=== PATIENT | female | born 1945 | race Caucasian/White ===

== ENCOUNTER → 2016-12-06 | Outpatient (CLI) | payer MEDICARE ==
[~2016-12-06] MED LIST: NO HOME MEDS
== END | disposition home or self-care (01) ==
LOC: CFH 15:39
PROVIDERS: ATTEND Family Medicine
DX: M23.221 Derangement of posterior horn of medial meniscus due to old tear or injury, right knee (principal); M25.461 Effusion, right knee; M71.21 Synovial cyst of popliteal space [Baker], right knee

== ENCOUNTER → 2018-06-22 | Outpatient (CLI) | payer MEDICARE | END | disposition home or self-care (01) | LOC: CFH 07:44 | PROVIDERS: ATTEND Family Medicine | DX: Z12.31 Encounter for screening mammogram for malignant neoplasm of breast (principal) | CPT/HCPCS: 77067 ==

== ENCOUNTER 2018-09-02 13:41 | Inpatient (IN) | payer MEDICARE ==
[~2018-09-02] VITALS: Ht 157.5 cm; Wt 76.9 kg
[2018-09-02] MEDS ORDERED: HYDROmorphone 1 MG/ML, 1ML ONE ×2 (13:50→14:12)
[2018-09-02] MEDS ORDERED: ONDANSETRON 2MG/ML, 2ML ONE ×2 (13:50→14:59)
[2018-09-02] MEDS ORDERED: ONDANSETRON 2MG/ML, 2ML IVPush ONE (14:00)
[2018-09-02] MEDS ORDERED: SODIUM CHLORIDE FLUSH 10ML SYR IVF ONE ×3 (14:00→16:00)
--- NOTE | 2018-09-02 14:02 | NUR ---
MARILIN PAW WARMER IN PLACE. MEDICATED FOR PAIN PER ORDERS
[2018-09-02] MEDS: HYDROmorphone 2 MG/ML, 1ML IVPush PRN ×2 (14:06→14:45)
--- NOTE | 2018-09-02 14:19 | NUR ---
Pt to xray via rj.
--- NOTE | 2018-09-02 14:41 | NUR ---
Pt back from xray, still c/o pain in R hip 03/26. Pt medicated per SEP.
--- NOTE | 2018-09-02 14:47 | NUR ---
Dr. Chin at bedside to discuss POC with pt.
[2018-09-02] MEDS ORDERED: PROPOFOL 10 MG/ML, 20ML ONE (14:59)
[2018-09-02] MEDS ORDERED: DEXAMETHASONE 4 MG/ML, 1ML ONE (14:59)
[2018-09-02] MEDS ORDERED: ROCURONIUM 10MG/ML,5ML ONE (14:59)
[2018-09-02] MEDS ORDERED: SUCCINYLCHOLINE 20 MG/ML, 10ML ONE (14:59)
[2018-09-02] MEDS ORDERED: CEFAZOLIN 1,000 MG ONE (14:59)
[2018-09-02 15:15] LABS: BASOPHILS # (AUTO) 0.03 x10^3/uL (0-0.1); BASOPHILS % (AUTO) 0 % (0-1); EOSINOPHILS # (AUTO) 0.02 x10^3/uL (0-0.4); EOSINOPHILS % (AUTO) 0 % (1-7); LYMPHOCYTES # (AUTO) 1.16 x10^3/uL (1-3.4); LYMPHOCYTES % (AUTO) 11 % (22-44); MD NO; MEAN CORPUSCULAR HEMOGLOBIN 30.3 pg (27.0-34.8); MEAN CORPUSCULAR HGB CONC 33.7 g/dL (32.4-35.8); MEAN PLATELET VOLUME 8.6 fL (7.4-10.4); MONOCYTES # (AUTO) 0.37 x10^3/uL (0.2-0.8); MONOCYTES % (AUTO) 4 % (2-9); NEUTROPHILS # (AUTO) 8.86 x10^3/uL (1.8-6.8); NEUTROPHILS % (AUTO) 85 % (42-75); PLATELET COUNT 179 x10^3/uL (130-400); RED BLOOD COUNT 4.36 x10^6/uL (3.82-5.3); RED CELL DISTRIBUTION WIDTH 13.8 % (9.6-15.2)
[2018-09-02 15:23] LABS: INTERNATIONAL NORMALIZED RATIO 0.99 (0.93-1.1); PROTHROMBIN TIME 10.5 Seconds (9.6-11.5)
[2018-09-02 15:24] LABS: ALBUMIN 3.7 g/dL (3.4-5.0); ANION GAP 6 mmol/L (5-15); CALCIUM 8.2 mg/dL (8.5-10.1); CHLORIDE 110 mmol/L (98-107); CREATININE 0.75 mg/dL (0.55-1.02)
[2018-09-02 15:28] LABS: TROPONIN I < 0.015 ng/mL (0.000-0.045)
--- NOTE | 2018-09-02 15:43 | NUR ---
HOSPITALIST AT BEDSIDE
--- NOTE | 2018-09-02 15:57 | NUR ---
PU[facility]WICK EXTERNAL FEMALE CATHETER PLACED
[2018-09-02] MEDS ORDERED: morphine SULFATE 10 MG/ML, 1ML IVPush PRN (16:00)
[2018-09-02] MEDS ORDERED: ONDANSETRON 2MG/ML, 2ML IVPush PRN (16:00)
[2018-09-02] MEDS ORDERED: ENALAPRILAT 1.25 MG/ML, 2ML IVPush PRN (16:00)
--- NOTE | 2018-09-02 16:29 | NUR ---
REPORT TO LANETTE GARNETT
[2018-09-02 16:55] VITALS: BP 146/76
[2018-09-02] MEDS: SODIUM CHLORIDE 0.9% 1,000 ML IV SCH (17:34)
[2018-09-02] MEDS ORDERED: FENTANYL PF 250 MCG/5ML ONE (18:34)
[2018-09-02] MEDS ORDERED: MEPERIDINE/PF 25MG/ML,1ML ONE (19:57)
[2018-09-02] MEDS ORDERED: HYDROmorphone 2 MG/ML, 1ML IVPush PRN (20:00)
[2018-09-02] MEDS ORDERED: OXYcodone 5 MG/5 ML ORAL.SOL UDC PO PRN (20:00)
[2018-09-02] MEDS ORDERED: ACETAMINOPHEN 325 MG TABLET PO PRN (20:00)
[2018-09-02] MEDS ORDERED: FENTANYL PF 100 MCG/2ML IV PRN (20:00)
[2018-09-02] MEDS ORDERED: MEPERIDINE/PF 25MG/0.5ML IVPush PRN (20:00)
[2018-09-02] MEDS ORDERED: ONDANSETRON 2MG/ML, 2ML IV PRN (20:00)
[2018-09-02] MEDS ORDERED: ONDANSETRON ODT 8 MG PO PRN (20:00)
[2018-09-02] MEDS ORDERED: OXYcodone 5 MG/5 ML ORAL.SOL UDC ONE ×2 (20:17→20:20)
[2018-09-02] MEDS: KETOROLAC 30 MG/1 ML IV SCH (23:17)
[2018-09-02 23:55] VITALS: BP 110/57
[2018-09-03 02:10] VITALS: BP 89/61
[2018-09-03] MEDS: CEFAZOLIN PMX 1GM/50ML 50 ML IV SCH ×3 (03:21→20:32)
[2018-09-03 03:55] VITALS: BP 108/64
[2018-09-03 05:46] LABS: CHLORIDE 112 mmol/L (98-107)
[2018-09-03 05:50] LABS: BASOPHILS # (AUTO) 0.01 x10^3/uL (0-0.1); BASOPHILS % (AUTO) 0 % (0-1); EOSINOPHILS % (AUTO) 0 % (1-7); LYMPHOCYTES # (AUTO) 0.86 x10^3/uL (1-3.4); LYMPHOCYTES % (AUTO) 11 % (22-44); MD NO; MEAN CORPUSCULAR HEMOGLOBIN 30.6 pg (27.0-34.8); MEAN CORPUSCULAR HGB CONC 34.2 g/dL (32.4-35.8); MEAN CORPUSCULAR VOLUME 89.3 fL (80-100); MEAN PLATELET VOLUME 8.6 fL (7.4-10.4); MONOCYTES # (AUTO) 0.37 x10^3/uL (0.2-0.8); MONOCYTES % (AUTO) 5 % (2-9); NEUTROPHILS # (AUTO) 6.44 x10^3/uL (1.8-6.8); NEUTROPHILS % (AUTO) 84 % (42-75); PLATELET COUNT 139 x10^3/uL (130-400); RED BLOOD COUNT 3.46 x10^6/uL (3.82-5.3); RED CELL DISTRIBUTION WIDTH 13.8 % (9.6-15.2)
[2018-09-03] MEDS: SODIUM CHLORIDE 0.9% 1,000 ML IV SCH ×2 (05:52→20:32)
[2018-09-03] MEDS: ENOXAPARIN 40 MG/0.4 ML SQ SCH (05:52)
[2018-09-03 05:53] LABS: ALANINE AMINOTRANSFERASE 27 U/L (12-78); ALBUMIN 2.8 g/dL (3.4-5.0); ALKALINE PHOSPHATASE 59 U/L (45-117); ANION GAP 6 mmol/L (5-15); BILIRUBIN,TOTAL 0.6 mg/dL (0.2-1.0); CALCIUM 7.2 mg/dL (8.5-10.1); TOTAL PROTEIN 5.9 g/dL (6.4-8.2)
[2018-09-03] MEDS: KETOROLAC 30 MG/1 ML IV SCH ×2 (06:27→15:08)
[2018-09-03 07:56] VITALS: BP 96/56
[2018-09-03 13:09] VITALS: BP 92/57
[2018-09-03 22:34] VITALS: BP 104/56
[2018-09-04] MEDS: OXYcodone IR 5MG TABLET PO PRN ×4 (01:28→19:27)
[2018-09-04 03:37] VITALS: BP 102/63
[2018-09-04] MEDS: ENOXAPARIN 40 MG/0.4 ML SQ SCH (06:13)
[2018-09-04] MEDS: SODIUM CHLORIDE 0.9% 1,000 ML IV SCH (06:13)
[2018-09-04 07:00] VITALS: BP 104/53
[2018-09-04 13:40] VITALS: BP 102/62
[2018-09-04] MEDS ORDERED: OXYC5TAB3 PO (16:28)
[2018-09-04] MEDS ORDERED: TRAM50TA2 PO (16:28)
[2018-09-04] MEDS ORDERED: POLY17PO5 PO (16:28)
[2018-09-04 18:45] VITALS: BP 93/48
[2018-09-05 00:23] VITALS: BP 107/59
[2018-09-05] MEDS: OXYcodone IR 5MG TABLET PO PRN ×2 (00:23→06:46)
[2018-09-05] MEDS: ENOXAPARIN 40 MG/0.4 ML SQ SCH (06:06)
[2018-09-05 09:24] VITALS: BP 106/64
[2018-09-05] MEDS ORDERED: SODIUM CHLORIDE 0.9% 1,000 ML IV SCH (15:50)
== END 2018-09-05 13:00 | DRG 480 ==
LOC: SUATTDRO 15:50 → OR 16:19 → EDIP 16:20 → 4NOR 16:57
PROVIDERS: ADMIT Internal Medicine; ATTEND Internal Medicine
PROC: 0PSHXZZ Reposition Right Radius, External Approach (ICD-10-PCS; 2018-09-02)
PROC: 0QS636Z Reposition Right Upper Femur with Intramedullary Internal Fixation Device, Percutaneous Approach (ICD-10-PCS; principal; 2018-09-02 19:00)
DX: S72.141A Displaced intertrochanteric fracture of right femur, initial encounter for closed fracture (principal); E43 Unspecified severe protein-calorie malnutrition; S52.501A Unspecified fracture of the lower end of right radius, initial encounter for closed fracture; E66.9 Obesity, unspecified; W00.0XXA Fall on same level due to ice and snow, initial encounter; Z85.51 Personal history of malignant neoplasm of bladder; Z87.891 Personal history of nicotine dependence; Y93.89 Activity, other specified; Y92.89 Other specified places as the place of occurrence of the external cause; Z68.31 Body mass index [BMI] 31.0-31.9, adult
CPT/HCPCS: 36415; 71045; 72170; 76000; 80048; 80053; 82040; 83735; 84100; 84443; 84484; 85014; 85018; 85025; 85610; 85730; 93005; 96374; 96375; 96376; 99285; C1713; G0378; J0690; J1100; J1170; J1650; J1885; J2175; J2405; J2704; J3010; J0330; J7030

== ENCOUNTER → 2018-12-03 | Outpatient (CLI) | payer MEDICARE ==
[~2018-12-03] MED LIST changes: +OXYC5TAB3 PO; +POLY17PO5 PO; +TRAM50TA2 PO
== END | disposition home or self-care (01) ==
LOC: CFH 08:35
PROVIDERS: ATTEND Family Medicine
DX: S72.001D Fracture of unspecified part of neck of right femur, subsequent encounter for closed fracture with routine healing (principal); M85.89 Other specified disorders of bone density and structure, multiple sites; X58.XXXD Exposure to other specified factors, subsequent encounter
CPT/HCPCS: 77080

== ENCOUNTER 2020-08-08 12:56 | Emergency (ER) | payer MEDICARE ==
[~2020-08-08] VITALS: Ht 160 cm; Wt 80.1 kg
[~2020-08-08 12:56] MED LIST changes: -OXYC5TAB3 PO; +OXYC5TAB98 PO
--- NOTE | 2020-08-08 13:37 | NUR ---
PT C/O LOWER BACK PAIN. PT STATES SHE HAD BILATERAL LOWER LEG PAIN LAST NIGHT, BUT THAT HAS RESOLVED. PT SAYS HER BACK PAIN ONLY OCCURS IF SHE IS MOVING, NO PAIN WHEN LAYING STILL. PT DENIES N/V, CP, SOB, OR GI DISTRESS.
--- NOTE | 2020-08-08 13:40 | NUR ---
PA BEDSIDE, Zarina OLIVERA
[2020-08-08] MEDS ORDERED: SODIUM CHLORIDE FLUSH 10ML SYR IVF ONE (14:00)
[2020-08-08 14:30] LABS: MICROSCOPIC NOT IND
[2020-08-08 14:42] LABS: BASOPHILS % (AUTO) 1 % (0-1); EOSINOPHILS % (AUTO) 2 % (1-7); LYMPHOCYTES % (AUTO) 25 % (22-44); MEAN CORPUSCULAR HEMOGLOBIN 30.6 pg (27.0-34.8); MEAN CORPUSCULAR HGB CONC 33.9 g/dL (32.4-35.8); MEAN PLATELET VOLUME 8.6 fL (7.4-10.4); MONOCYTES % (AUTO) 8 % (2-9); NEUTROPHILS % (AUTO) 65 % (42-75); PLATELET COUNT 184 x10^3/uL (130-400); RED BLOOD COUNT 4.67 x10^6/uL (3.82-5.3); RED CELL DISTRIBUTION WIDTH 13.7 % (9.6-15.2)
[2020-08-08 14:44] LABS: MD NO
[2020-08-08 14:49] VITALS: BP 121/67
[2020-08-08 14:51] LABS: ALBUMIN 3.6 g/dL (3.4-5.0); ANION GAP 6 mmol/L (5-15); CALCIUM 8.6 mg/dL (8.5-10.1); CHLORIDE 105 mmol/L (98-107); CREATININE 0.86 mg/dL (0.55-1.02)
[2020-08-08 14:55] LABS: TROPONIN I < 0.015 ng/mL (0.000-0.045)
--- NOTE | 2020-08-08 16:20 | NUR ---
PT LEFT WITHOUT DISCHARGE PAPERWORK. PAPERWORK LEFT AT CHARGE DESK.
--- NOTE | 2020-08-08 16:21 | NUR ---
PT AMBULATORY PAST THE CHARGE DESK, STEADY GAIT.
== END 2020-08-08 16:24 | disposition home or self-care (01) ==
LOC: ED 14:26
DX: S39.012A Strain of muscle, fascia and tendon of lower back, initial encounter (principal); M51.36 Other intervertebral disc degeneration, lumbar region; F41.1 Generalized anxiety disorder; X58.XXXA Exposure to other specified factors, initial encounter; Y93.89 Activity, other specified; Y92.89 Other specified places as the place of occurrence of the external cause; Y99.8 Other external cause status
CPT/HCPCS: 36415; 71045; 72110; 80048; 81003; 82040; 83880; 84484; 85025; 93005; 99285